=== PATIENT | female | born 1960 | race Caucasian/White ===

== ENCOUNTER 2020-07-05 14:34 | Inpatient (IN) | payer MEDICARE, OTHER ==
[~2020-07-05] VITALS: Ht 154.9 cm; Wt 68.9 kg
[2020-07-05] MEDS ORDERED: MAGNESIUM HYDROXIDE 30 ML LIQUID UDC PO PRN (15:15)
[2020-07-05] MEDS ORDERED: MAG HYDROX/AL HYDROX/SIMETH 30 ML LIQUID UDC PO PRN (15:15)
[2020-07-05] MEDS ORDERED: RAME8TAB24 PO (15:24)
[2020-07-05] MEDS ORDERED: LEVO75TA7 PO (15:24)
[2020-07-05] MEDS ORDERED: RISP2TAB85 PO (15:24)
[2020-07-05] MEDS ORDERED: LORA-258 PO (15:24)
[2020-07-05] MEDS ORDERED: RISP3TAB61 PO (15:24)
[2020-07-05] MEDS ORDERED: ERGO2500 (15:24)
[2020-07-05] MEDS ORDERED: DOCU100C36 PO (15:24)
[2020-07-05] MEDS ORDERED: MONT10TA97 PO (15:24)
[2020-07-05] MEDS ORDERED: BLOOD SUGAR DIAGNOSTIC 1 EACH STRIP VI ONE (15:40)
--- NOTE | 2020-07-05 16:00 | NUR ---
Pt was admitted from [facility] via ambulance on 515 due to DTS and GD. According to the hold, patient was unmanageable behavior at her place of residence. Pt was not compliant with medicaitons, disruptive, mumbling, yelling and episodes of drinking urine and putting feces in her ears. Upon face to face evaluation, Pt is uncooperative, resists care and unable to answer questions. Pt is moaning and repeating "I want to see my sister", "I want milkshake." Pt was transferred to her bed, skin check was done, bed alarm is on.
[2020-07-05] MEDS ORDERED: OLANZAPINE 10 MG VIAL IM ONE (16:15)
[2020-07-05] MEDS ORDERED: LORAZEPAM 2 MG/1 ML VIAL IM ONE (16:43)
[2020-07-05] MEDS: NYSTATIN CREAM 30 GM TUBE TOP SCH (22:12)
[2020-07-06] MEDS: LORAZEPAM 0.5 MG TABLET PO PRN (00:22)
--- NOTE | 2020-07-06 00:23 | NUR ---
patient yelling and banging on bed rails. ativan 0.5 mg po given.
[2020-07-06] MEDS: ZOLPIDEM 5 MG TABLET PO PRN (01:09)
--- NOTE | 2020-07-06 01:14 | NUR ---
patient is calm now but still awake unable to sleep. assisted to feed pudding. resting in bed.
--- NOTE | 2020-07-06 01:16 | NUR ---
patient unable to sleep. ambien 5 mg po given for sleep.
--- NOTE | 2020-07-06 02:18 | NUR ---
patient is sleeping at this time. prn for sleep effective.
--- NOTE | 2020-07-06 05:46 | NUR ---
GPS: Remain uncooperative most of the night. assisted with adl's. good jayden care provided. patient occ disrobing her self. slept only3.45 hrs through the night after sleeping meds given. bed alarm on for safety.continue plan of care.
[2020-07-06] MEDS: LEVOTHYROXINE SODIUM 75 MCG TABLET PO SCH (06:04)
[2020-07-06 07:30] VITALS: BP 117/63
[2020-07-06] MEDS: NYSTATIN CREAM 30 GM TUBE TOP SCH ×2 (08:30→21:36)
[2020-07-06] MEDS: MONTELUKAST SODIUM 10 MG TABLET PO SCH (08:30)
[2020-07-06] MEDS: DOCUSATE SODIUM 100 MG CAPSULE PO SCH (08:30)
[2020-07-06] MEDS ORDERED: OLANZAPINE 10 MG VIAL IM ONE (09:45)
[2020-07-06] MEDS ORDERED: LORAZEPAM 2 MG/1 ML VIAL IM ONE (09:45)
--- NOTE | 2020-07-06 09:51 | NUR ---
GPS: Nursing Notes: Chemical Restraint: Patient continue to be banging on the table, overly disruptive by shouting, screaming, baing on the table constantly, unable to be redirected, childlike behavior, resistant with nursing care, medicated with Zyprexa 10mg IM and Ativan 1mg IM STAT per Dr. Rosa covering for Dr. Bullock, continue to monitor for safety, continue with treatment plan.
--- NOTE | 2020-07-06 10:17 | NUR ---
GPS: Nursing Notes: Severe Agitation: Patient continue to be overly disruptive by banging on the side rail, banging on the table, verbal abusive, "fuck you...", shouting, screaming constantly, unable to follow directions, resistant with nursing care, impaired judgment, trying to climb over the side rail without any regard to her safety, throwing her food on the floor and screaming, Dr. Shelley navarrete, continue to monitor for safety, continue with treatment plan. Addendum: 07/06/20 at 1025 by TAYLER ZULUAGA LVN This charting is for 09:47.
--- NOTE | 2020-07-06 10:19 | NUR ---
GPS: Nursing Notes: Reassessment of Chemical Restraint: Patient became less disruptive, less shouting, patient stopped banging on the table, but continue to shout with less intensity, unable to follow directions, resistant with nursing care, medication IM's were helpful, R=18, continue to monitor for safety, continue with treatment plan.
[2020-07-06 16:50] VITALS: BP 101/48
[2020-07-06] MEDS: DIVALPROEX 250 MG TABLET.DR PO SCH (16:55)
[2020-07-06] MEDS: OLANZAPINE 2.5 MG TABLET PO SCH (16:55)
[2020-07-06 20:00] VITALS: BP 100/69
[2020-07-07] MEDS: ACETAMINOPHEN 325 MG TABLET PO PRN ×2 (03:08→11:50)
[2020-07-07] MEDS: LORAZEPAM 0.5 MG TABLET PO PRN ×3 (03:08→19:23)
[2020-07-07] MEDS: OLANZAPINE 2.5 MG TABLET PO PRN ×2 (05:09→11:50)
[2020-07-07] MEDS: LEVOTHYROXINE SODIUM 75 MCG TABLET PO SCH (07:00)
[2020-07-07 07:30] VITALS: BP 123/69
[2020-07-07] MEDS: DOCUSATE SODIUM 100 MG CAPSULE PO SCH (08:17)
[2020-07-07] MEDS: MONTELUKAST SODIUM 10 MG TABLET PO SCH (08:17)
[2020-07-07] MEDS: OLANZAPINE 2.5 MG TABLET PO SCH ×3 (08:17→20:16)
[2020-07-07] MEDS: DIVALPROEX 250 MG TABLET.DR PO SCH ×2 (08:18→12:02)
[2020-07-07] MEDS: NYSTATIN CREAM 30 GM TUBE TOP SCH ×2 (08:18→20:16)
[2020-07-07 10:58] LABS: BASOPHILS % (AUTO) 0.4 % (0.0-2.0); EOSINOPHILS % (AUTO) 1.7 % (0.0-7.0); HEMATOCRIT 36.1 % (31.2-41.9); HEMOGLOBIN 12.1 g/dL (10.9-14.3); LYMPHOCYTES # (AUTO) 0.6 K/uL (20.0-40.0); LYMPHOCYTES % (AUTO) 21.1 % (20.5-51.5); MEAN CORPUSCULAR HEMOGLOBIN 29.9 uug (24.7-32.8); MEAN CORPUSCULAR HGB CONC 33 g/dL (32.3-35.6); MEAN CORPUSCULAR VOLUME 89.6 fL (75.5-95.3); MONOCYTES # (AUTO) 0.3 K/uL (2.0-10.0); MONOCYTES % (AUTO) 11.9 % (0.0-11.0); NEUTROPHILS # (AUTO) 1.8 K/uL (1.8-8.9); NEUTROPHILS % (AUTO) 64.9 % (38.5-71.5); PLATELET COUNT (AUTO) 69 K/uL (179-408); RED BLOOD CELL COUNT(AUTO) 4.03 MIL/uL (3.63-4.92); WHITE BLOOD COUNT (AUTO) 2.7 K/uL (3.8-11.8)
[2020-07-07 11:12] LABS: BILIRUBIN,TOTAL 0.3 mg/dL (0.2-1.0); CREATININE 1.2 mg/dL (0.6-1.3); MAGNESIUM 2.3 mg/dL (1.8-2.4); POTASSIUM 4.3 mmol/L (3.5-5.1); TOTAL PROTEIN, SERUM 6.3 g/dL (6.4-8.2)
[2020-07-07 12:33] LABS: PHOSPHOROUS 4.2 mg/dL (2.5-4.9)
[2020-07-07 16:00] VITALS: BP 101/61
[2020-07-07 20:00] VITALS: BP 94/50
[2020-07-07] MEDS ORDERED: OLANZAPINE 10 MG VIAL IM ONE (21:55)
--- NOTE | 2020-07-07 23:20 | NUR ---
Chemical Restraint Note: Pt is disoriented, confused, disruptive, defiant, and resistant to staff direction. Pt was yelling, screaming, crying, and refusing prn medication. Pt threw her juice and pudding at staff and began banging the table and christopher with her fists. Redirection and reorientation were ineffective. Pt was uncooperative and refused to stop hitting the furniture, and demonstrated no regard for her safety or the safety of others. Pt attempted to strike staff when approached. Dr Bullock notified of Pt's behavior, Zyprexa 10mg IM ordered and administered with 2 staff present. IM administered to (L) deltoid, hands on Pt's arms for IM administration only, Pt did not physically resist. Medication effective, Pt calmed and is observed sleeping, breathing even and unlabored. VS stable at this time. Will continue to monitor.
[2020-07-08] MEDS: LEVOTHYROXINE SODIUM 75 MCG TABLET PO SCH (06:31)
[2020-07-08 07:30] VITALS: BP 115/67
[2020-07-08] MEDS: NYSTATIN CREAM 30 GM TUBE TOP SCH ×2 (08:19→21:09)
[2020-07-08] MEDS ORDERED: LORAZEPAM 0.5 MG TABLET PO PRN (08:30)
[2020-07-08] MEDS ORDERED: OLANZAPINE 2.5 MG TABLET PO SCH (08:34)
[2020-07-08] MEDS: OLANZAPINE 5 MG TABLET PO SCH ×4 (08:37→21:07)
--- NOTE | 2020-07-08 08:57 | NUR ---
Firearms Report: Chain Mender completed and submitted a [employer] firearms report for 5150 grave disability certification. A copy of report has been placed in patient chart.
[2020-07-08] MEDS: DOCUSATE SODIUM 100 MG CAPSULE PO SCH ×2 (09:00→10:09)
[2020-07-08] MEDS ORDERED: MONTELUKAST SODIUM 10 MG TABLET PO SCH (09:00)
[2020-07-08] MEDS: MONTELUKAST SODIUM 10 MG TABLET PO SCH (09:31)
[2020-07-08] MEDS: LORAZEPAM 1 MG TABLET PO PRN ×2 (10:14→16:15)
--- NOTE | 2020-07-08 10:53 | NUR ---
Initial Discharge Plan: Patient currently resides at a [facility] [address] [place] [address]; ([phone]). Patient's caregiver Opal ([phone]) is involved in patient's care. She stated patient is welcomed back to the [facility] if she is mobile. This SW will work with the MD and treatment team to help coordinate proper discharge plan.
--- NOTE | 2020-07-08 10:53 | NUR ---
Caregiver Contact: This SW contacted pt's caregiver to discuss treatment and discharge plan. Patient's caregiver Opal ([phone]) is involved in patient's care. She stated patient is welcomed back to the Assisted if she is mobile.
--- NOTE | 2020-07-08 15:49 | NUR ---
Dielectric Tester: Patient has a assistant case manager ([phone]) through [facility]. Per assistant case manager, Duran ([phone]) stated pt was off Depakote 2 years ago and it had caused weight loss and did not start on any other psychotropic medications. Per Duran, he stated she was on lithium and it was not affective it was causing behavioral issues.
[2020-07-08 15:54] VITALS: BP 95/55
[2020-07-08 20:38] VITALS: BP 100/52
[2020-07-09] MEDS: ZOLPIDEM 5 MG TABLET PO PRN (01:08)
[2020-07-09] MEDS: LORAZEPAM 1 MG TABLET PO PRN ×2 (03:57→11:36)
--- NOTE | 2020-07-09 04:02 | NUR ---
GPS: Pt.is awake,anxious and frequently calling-out for food. Also been trying to get up unassisted. Assisted to the toilet few times during the night. Snacks were given earlier already. Ativan 1mg PO given for anxiety. Re-directed and re-assured prn. Fall precautions observed.
[2020-07-09 04:33] LABS: *BILIRUBIN,URIN NEGATIVE (NEGATIVE); *BLOOD, URINE NEGATIVE (NEGATIVE); *CLARITY,URINE CLEAR (CLEAR); *COLOR,URINE YELLOW (YELLOW); *KETONES,URINE NEGATIVE (NEGATIVE); *UROBILINOGEN,URINE 0.2 E.U./dl (NORMAL); LEUKOCYTE ESTERASE ,URINE NEGATIVE (NEGATIVE); NITRITE, URINE NEGATIVE (NEGATIVE); UGLUCOSE NEGATIVE (NEGATIVE)
[2020-07-09 04:54] LABS: BACTERIA,URINE NONE SEEN /HPF (NONE SEEN); MUCUS,URINE FEW /LPF (0-FEW); RBC,URINE 0-3 /HPF (0-3); SQUAMOUS EPITHELIAL CELL,UR FEW /HPF (NONE SEEN)
[2020-07-09] MEDS: LEVOTHYROXINE SODIUM 75 MCG TABLET PO SCH (06:36)
[2020-07-09 07:30] VITALS: BP 105/64
[2020-07-09] MEDS: DOCUSATE SODIUM 100 MG CAPSULE PO SCH (08:21)
[2020-07-09] MEDS: OLANZAPINE 5 MG TABLET PO SCH ×3 (08:21→21:50)
[2020-07-09] MEDS: NYSTATIN CREAM 30 GM TUBE TOP SCH ×2 (08:22→21:52)
[2020-07-09] MEDS: ACETAMINOPHEN 325 MG TABLET PO PRN (08:22)
[2020-07-09] MEDS: OLANZAPINE 2.5 MG TABLET PO PRN (11:36)
[2020-07-09 16:00] VITALS: BP 102/54
[2020-07-09] MEDS: MONTELUKAST SODIUM 10 MG TABLET PO SCH (17:02)
[2020-07-09 20:14] VITALS: BP 117/44
[2020-07-10] MEDS: ZOLPIDEM 5 MG TABLET PO PRN ×2 (00:12→22:14)
[2020-07-10] MEDS: LEVOTHYROXINE SODIUM 75 MCG TABLET PO SCH (06:40)
[2020-07-10 07:30] VITALS: BP 128/68
[2020-07-10 08:41] LABS: BASOPHILS % (AUTO) 0.4 % (0.0-2.0); EOSINOPHILS # (AUTO) 0.1 K/uL (0.0-0.7); EOSINOPHILS % (AUTO) 3.4 % (0.0-7.0); HEMATOCRIT 35.9 % (31.2-41.9); LYMPHOCYTES # (AUTO) 0.9 K/uL (20.0-40.0); LYMPHOCYTES % (AUTO) 24.9 % (20.5-51.5); MEAN CORPUSCULAR HEMOGLOBIN 30.1 uug (24.7-32.8); MEAN CORPUSCULAR HGB CONC 33 g/dL (32.3-35.6); MEAN CORPUSCULAR VOLUME 90.3 fL (75.5-95.3); MONOCYTES # (AUTO) 0.4 K/uL (2.0-10.0); MONOCYTES % (AUTO) 11.5 % (0.0-11.0); NEUTROPHILS # (AUTO) 2.1 K/uL (1.8-8.9); NEUTROPHILS % (AUTO) 59.8 % (38.5-71.5); PLATELET COUNT (AUTO) 55 K/uL (179-408); RED BLOOD CELL COUNT(AUTO) 3.98 MIL/uL (3.63-4.92); WHITE BLOOD COUNT (AUTO) 3.5 K/uL (3.8-11.8)
[2020-07-10 08:46] LABS: BILIRUBIN,TOTAL 0.4 mg/dL (0.2-1.0); MAGNESIUM 2.4 mg/dL (1.8-2.4); PHOSPHOROUS 2.9 mg/dL (2.5-4.9); POTASSIUM 5.1 mmol/L (3.5-5.1); TOTAL PROTEIN, SERUM 6.4 g/dL (6.4-8.2)
[2020-07-10 09:13] LABS: BILIRUBIN,DIRECT 0.1 mg/dL (0.0-0.2)
[2020-07-10] MEDS: DOCUSATE SODIUM 100 MG CAPSULE PO SCH (10:11)
[2020-07-10] MEDS: OLANZAPINE 5 MG TABLET PO SCH ×3 (10:11→20:31)
[2020-07-10] MEDS: NYSTATIN CREAM 30 GM TUBE TOP SCH ×2 (10:13→20:32)
[2020-07-10] MEDS: busPIRone 5 MG TABLET PO SCH ×3 (10:15→18:25)
--- NOTE | 2020-07-10 13:20 | NUR ---
Probable Cause Hearing: Probable cause hearing was today and it was upheld for GD and danger to self.
[2020-07-10 16:00] VITALS: BP 101/51
[2020-07-10 17:43] LABS: EOSINOPHILS % (MANUAL) 5 % (0-8); LYMPHOCYTES % (MANUAL) 25 % (20-40); MONOCYTES % (MANUAL) 10 % (2-10); NEUTROPHILS % (MANUAL) 60 % (42-75)
[2020-07-10] MEDS: MONTELUKAST SODIUM 10 MG TABLET PO SCH (18:25)
[2020-07-10 20:15] VITALS: BP 112/57
[2020-07-10] MEDS: ACETAMINOPHEN 325 MG TABLET PO PRN (21:08)
--- NOTE | 2020-07-10 21:08 | NUR ---
Patient c/o headache. tylenol 650 mg po given.
--- NOTE | 2020-07-10 22:08 | NUR ---
patient stated feeling heri. Tylenol effective for headache.
[2020-07-11] MEDS: LORAZEPAM 1 MG TABLET PO PRN ×3 (01:46→23:57)
--- NOTE | 2020-07-11 01:51 | NUR ---
patient is very agitated. screaming loud. banging on side rails. ativan 1 mg po given.
--- NOTE | 2020-07-11 02:52 | NUR ---
patient is calm now. resting in bed. ativan for agitation effective.
--- NOTE | 2020-07-11 05:33 | NUR ---
GPS: Patient remain anxious and frequently calling-out for food and water. occ trying to get up unassisted. Assisted to the toilet and back to bed.unsteady gait. Re-directed and re-assured prn. Fall precautions observed. continue plan of care.
--- NOTE | 2020-07-11 05:52 | NUR ---
slept 5.15 hrs through the night.
[2020-07-11] MEDS: LEVOTHYROXINE SODIUM 75 MCG TABLET PO SCH (06:02)
[2020-07-11 07:30] VITALS: BP 108/58
[2020-07-11] MEDS: DOCUSATE SODIUM 100 MG CAPSULE PO SCH (08:36)
[2020-07-11] MEDS: busPIRone 5 MG TABLET PO SCH ×3 (08:37→16:52)
[2020-07-11] MEDS: OLANZAPINE 5 MG TABLET PO SCH ×3 (08:37→20:54)
[2020-07-11] MEDS: NYSTATIN CREAM 30 GM TUBE TOP SCH ×2 (08:38→21:00)
--- NOTE | 2020-07-11 11:20 | NUR ---
Gps/Enamel Pulverizer- Crying wilber gore at times, redirected, stayed up in her joshua-chair, attends her group therapy, listens ,no participations . Adequate fluid intake.
[2020-07-11 15:54] VITALS: BP 106/55
--- NOTE | 2020-07-11 16:15 | NUR ---
Gps/Sausage Machine Operator- Lower ext. weakness, unable to stand too long during toileting and hygiene. Tends to buckle.Safety reviewed . Bladder incontinence noted , diaper on.Kept up on her joshua-chair, patient tries to get oob bed alarm on.
[2020-07-11 17:06] LABS: A/G RATIO 1.1 (0.7-1.7); ALPHA-1-GLOBULIN 0.2 g/dL (0.0-0.4); ALPHA-2-GLOBULIN 0.6 g/dL (0.4-1.0); GAMMA GLOBULIN 0.9 g/dL (0.4-1.8); GLOBULIN, TOTAL 2.8 g/dL (2.2-3.9); M-SPIKE 0.4 g/dL (Not Observed)
[2020-07-11] MEDS: MONTELUKAST SODIUM 10 MG TABLET PO SCH (17:13)
[2020-07-11 20:10] VITALS: BP 99/51
[2020-07-12] MEDS: LEVOTHYROXINE SODIUM 75 MCG TABLET PO SCH (06:36)
[2020-07-12 07:30] VITALS: BP 111/62
[2020-07-12] MEDS: busPIRone 5 MG TABLET PO SCH ×3 (08:02→17:17)
[2020-07-12] MEDS: DOCUSATE SODIUM 100 MG CAPSULE PO SCH (08:02)
[2020-07-12] MEDS: OLANZAPINE 5 MG TABLET PO SCH ×3 (08:02→20:20)
[2020-07-12] MEDS: NYSTATIN CREAM 30 GM TUBE TOP SCH ×2 (08:03→21:23)
[2020-07-12 16:19] VITALS: BP 114/67
[2020-07-12] MEDS: MONTELUKAST SODIUM 10 MG TABLET PO SCH (17:17)
[2020-07-12] MEDS: BENZTROPINE MESYLATE 1 MG TABLET PO SCH (17:17)
[2020-07-12 20:00] VITALS: BP 116/64
[2020-07-13] MEDS: ZOLPIDEM 5 MG TABLET PO PRN ×2 (00:36→20:44)
[2020-07-13] MEDS: ACETAMINOPHEN 325 MG TABLET PO PRN (00:36)
--- NOTE | 2020-07-13 05:53 | NUR ---
PATIENT ASLEEP BUT EASILY AROUSABLE, PATIENT COOPERATIVE WITH CARE AND MEDICATIONS, PATIENT HAS EPISODE OF YELLING AND CRYING, AND REQUESTING PAIN MEDICATIONS, PATIENT WAS GIVEN TYLENOL AND SLEEPING MEDICATIONS FOR SLEEP AND COMFORT. PATIENT SLEEPT FOR 7:15, KEPT CLEAN AND DRY.
[2020-07-13] MEDS: LEVOTHYROXINE SODIUM 75 MCG TABLET PO SCH (06:03)
[2020-07-13 07:30] VITALS: BP 105/58
[2020-07-13] MEDS: busPIRone 5 MG TABLET PO SCH ×3 (08:15→16:03)
[2020-07-13] MEDS: OLANZAPINE 5 MG TABLET PO SCH ×3 (08:15→20:02)
[2020-07-13] MEDS: BENZTROPINE MESYLATE 1 MG TABLET PO SCH ×2 (08:15→16:03)
[2020-07-13] MEDS: DOCUSATE SODIUM 100 MG CAPSULE PO SCH (08:15)
[2020-07-13] MEDS: NYSTATIN CREAM 30 GM TUBE TOP SCH ×2 (08:16→20:02)
[2020-07-13 12:39] LABS: CREATININE 1.1 mg/dL (0.6-1.3); POTASSIUM 4.1 mmol/L (3.5-5.1)
[2020-07-13 12:47] LABS: BASOPHILS % (AUTO) 0.5 % (0.0-2.0); EOSINOPHILS # (AUTO) 0.1 K/uL (0.0-0.7); HEMATOCRIT 36.7 % (31.2-41.9); HEMOGLOBIN 12.1 g/dL (10.9-14.3); LYMPHOCYTES # (AUTO) 0.7 K/uL (20.0-40.0); LYMPHOCYTES % (AUTO) 22.8 % (20.5-51.5); MEAN CORPUSCULAR HGB CONC 33 g/dL (32.3-35.6); MONOCYTES # (AUTO) 0.3 K/uL (2.0-10.0); NEUTROPHILS % (AUTO) 62.7 % (38.5-71.5); PLATELET COUNT (AUTO) 85 K/uL (179-408); RED BLOOD CELL COUNT(AUTO) 4.03 MIL/uL (3.63-4.92); WHITE BLOOD COUNT (AUTO) 3.2 K/uL (3.8-11.8)
[2020-07-13 16:00] VITALS: BP 109/56
[2020-07-13] MEDS: MONTELUKAST SODIUM 10 MG TABLET PO SCH (17:12)
[2020-07-13 20:00] VITALS: BP 124/59
[2020-07-14] MEDS: LEVOTHYROXINE SODIUM 75 MCG TABLET PO SCH (06:00)
[2020-07-14 07:30] VITALS: BP 102/52
[2020-07-14] MEDS: BENZTROPINE MESYLATE 1 MG TABLET PO SCH ×2 (08:31→16:28)
[2020-07-14] MEDS: busPIRone 5 MG TABLET PO SCH ×3 (08:31→16:28)
[2020-07-14] MEDS: OLANZAPINE 5 MG TABLET PO SCH ×3 (08:31→21:03)
[2020-07-14] MEDS: DOCUSATE SODIUM 100 MG CAPSULE PO SCH (08:31)
[2020-07-14] MEDS: NYSTATIN CREAM 30 GM TUBE TOP SCH ×2 (08:32→21:04)
[2020-07-14] MEDS: OLANZAPINE 2.5 MG TABLET PO PRN (12:16)
[2020-07-14 15:12] VITALS: BP 114/47
[2020-07-14] MEDS: MONTELUKAST SODIUM 10 MG TABLET PO SCH (17:22)
[2020-07-14 18:44] LABS: *BILIRUBIN,URIN NEGATIVE (NEGATIVE); *BLOOD, URINE 2+ (NEGATIVE); *CLARITY,URINE SLIGHTLY CLOUDY (CLEAR); *COLOR,URINE YELLOW (YELLOW); *KETONES,URINE NEGATIVE (NEGATIVE); *UROBILINOGEN,URINE 0.2 E.U./dl (NORMAL); LEUKOCYTE ESTERASE ,URINE 2+ (NEGATIVE); NITRITE, URINE NEGATIVE (NEGATIVE); PH,URINE 5.5 (5.0-8.0); UGLUCOSE NEGATIVE (NEGATIVE)
[2020-07-14 23:54] LABS: BACTERIA,URINE FEW /HPF (NONE SEEN); SQUAMOUS EPITHELIAL CELL,UR FEW /HPF (NONE SEEN); URINE AMORPHOUS URATE FEW /HPF
[2020-07-15] MEDS: LEVOTHYROXINE SODIUM 75 MCG TABLET PO SCH (06:35)
--- NOTE | 2020-07-15 06:40 | NUR ---
Patient slept well during shift, awake once or twice for bathroom break. Some episode of crying or wanting attention without cause. Easily redirect-able and monitor throughout night.
[2020-07-15 07:30] VITALS: BP 103/60
[2020-07-15] MEDS: NYSTATIN CREAM 30 GM TUBE TOP SCH ×2 (08:08→20:16)
[2020-07-15] MEDS: DOCUSATE SODIUM 100 MG CAPSULE PO SCH (08:08)
[2020-07-15] MEDS: OLANZAPINE 5 MG TABLET PO SCH ×3 (08:08→20:15)
[2020-07-15] MEDS: BENZTROPINE MESYLATE 1 MG TABLET PO SCH ×2 (08:08→16:33)
[2020-07-15] MEDS: busPIRone 5 MG TABLET PO SCH ×3 (08:08→16:33)
[2020-07-15] MEDS: OLANZAPINE 2.5 MG TABLET PO PRN (12:14)
[2020-07-15 15:46] VITALS: BP 109/52
[2020-07-15] MEDS: CEphaleXIN 500 MG CAPSULE PO SCH (16:33)
[2020-07-15] MEDS: MONTELUKAST SODIUM 10 MG TABLET PO SCH (18:11)
[2020-07-15] MEDS: ACETAMINOPHEN 325 MG TABLET PO PRN (19:46)
[2020-07-15 19:52] VITALS: BP 107/55
[2020-07-16] MEDS: ZOLPIDEM 5 MG TABLET PO PRN (00:46)
[2020-07-16] MEDS: OLANZAPINE 2.5 MG TABLET PO PRN (04:40)
--- NOTE | 2020-07-16 04:45 | NUR ---
GPS: Nursing Notes: Thought Disorder: Patient is awake and responding to her name, asking for milk and crying about it, temper tantrum behavior, milk given with Zyprexa PRN PO, redirected and setting limits, but poor concentration, disorganized, disoriented, redirected and reoriented constantly during shift, unable to formulate a viable plan for self care, poor impulse control, episodes of childlike behavior, continue with treatment plan.
[2020-07-16] MEDS: LEVOTHYROXINE SODIUM 75 MCG TABLET PO SCH (06:06)
[2020-07-16 07:30] VITALS: BP 102/45
[2020-07-16] MEDS: DOCUSATE SODIUM 100 MG CAPSULE PO SCH (09:12)
[2020-07-16] MEDS: OLANZAPINE 5 MG TABLET PO SCH ×3 (09:12→20:38)
[2020-07-16] MEDS: busPIRone 5 MG TABLET PO SCH ×3 (09:12→16:40)
[2020-07-16] MEDS: BENZTROPINE MESYLATE 1 MG TABLET PO SCH ×2 (09:13→16:41)
[2020-07-16] MEDS: CEphaleXIN 500 MG CAPSULE PO SCH ×2 (09:13→16:41)
[2020-07-16] MEDS: NYSTATIN CREAM 30 GM TUBE TOP SCH ×2 (09:15→21:22)
--- NOTE | 2020-07-16 15:10 | NUR ---
Skilled Nursing Contact: SW contacted pt's senior living and spoke to Opal ([phone]) who stated that she will not accept the pt back until she can walk around without assist because she is an ambulatory facility and it has to do with licensing. She stated that the SW should talk to the pts protective services case worker, Germaine Flores ([phone]).
--- NOTE | 2020-07-16 15:35 | NUR ---
Content Production Specialist Contact: RAMÓN called pts shoe parts caser, Germaine Flores ([phone]), with [facility]. RAMÓN informed her about the conversation with the pts alf and she stated that the pt will need to be discharged to a higher level of care. RAMÓN stated that she will refer the pt to a snf and the shoe parts caser stated that she will speak with her cabin cleaning supervisor in terms of placement as well.
[2020-07-16 16:06] VITALS: BP 138/71
[2020-07-16] MEDS: MONTELUKAST SODIUM 10 MG TABLET PO SCH (17:05)
[2020-07-16 20:43] VITALS: BP 99/50
--- NOTE | 2020-07-17 05:03 | NUR ---
Patient in bed asleep but arousable. Patient has episode of agitation, yelling and claiming she cannot breath. Patient was check for oxygen saturation 95% on room air, reorient patient that she is derek, gave a glass of water to drink. Patient was offered to go to the bathroom, and to check her diaper, but patient refused, patient pants and diaper are dry. Provide snack early of shift. cont to monitor.
[2020-07-17] MEDS: LEVOTHYROXINE SODIUM 75 MCG TABLET PO SCH (06:07)
--- NOTE | 2020-07-17 06:44 | NUR ---
Patient slept for 4:45 minutes, awake early, wants to watch TV, get up in reclining chair.
[2020-07-17 07:30] VITALS: BP 106/54
[2020-07-17] MEDS: BENZTROPINE MESYLATE 1 MG TABLET PO SCH ×2 (10:03→17:34)
[2020-07-17] MEDS: OLANZAPINE 5 MG TABLET PO SCH ×3 (10:03→20:25)
[2020-07-17] MEDS: busPIRone 5 MG TABLET PO SCH ×3 (10:03→17:34)
[2020-07-17] MEDS: CEphaleXIN 500 MG CAPSULE PO SCH ×2 (10:03→17:33)
[2020-07-17] MEDS: DOCUSATE SODIUM 100 MG CAPSULE PO SCH (10:03)
[2020-07-17] MEDS: NYSTATIN CREAM 30 GM TUBE TOP SCH ×2 (10:04→20:48)
--- NOTE | 2020-07-17 13:54 | NUR ---
SNF Referral: SW faxed a referral to the following two facilities: [facility] with attn to Coy and [facility]: [phone] [facility] with attn to Supriya to the fax number: [phone]
[2020-07-17 16:00] VITALS: BP 103/45
[2020-07-17] MEDS: MONTELUKAST SODIUM 10 MG TABLET PO SCH (17:36)
[2020-07-17 20:00] VITALS: BP 103/54
[2020-07-17] MEDS: ZOLPIDEM 5 MG TABLET PO PRN (22:14)
--- NOTE | 2020-07-17 22:38 | NUR ---
PATIENT RECEIVED IN ACTIVITIES ROOM WATCHING T.V. PATIENT IS COMPLAINT WITH MEDICATION/CARE/DIET. PATIENT HAS POOR IMPULSE CONTROL, YELLING AT TIMES. PATIENT IS ABLE TO AMBULATE WITH ASSISTANCE. SAFE ENVIRONMENT PROVIDED, FREQUENT ROUNDING, AND CLUTTER FREE ENVIRONMENT. BED IN LOWEST POSITION, BED LOCKED, AND BED ALARM ON WHILE IN BED.
[2020-07-18] MEDS: LEVOTHYROXINE SODIUM 75 MCG TABLET PO SCH (06:12)
[2020-07-18 07:30] VITALS: BP 110/66
[2020-07-18 07:47] LABS: BASOPHILS % (AUTO) 0.8 % (0.0-2.0); EOSINOPHILS # (AUTO) 0.1 K/uL (0.0-0.7); EOSINOPHILS % (AUTO) 2.5 % (0.0-7.0); HEMATOCRIT 32.3 % (31.2-41.9); HEMOGLOBIN 10.9 g/dL (10.9-14.3); LYMPHOCYTES # (AUTO) 0.9 K/uL (20.0-40.0); LYMPHOCYTES % (AUTO) 24.8 % (20.5-51.5); MEAN CORPUSCULAR HEMOGLOBIN 30.8 uug (24.7-32.8); MEAN CORPUSCULAR HGB CONC 34 g/dL (32.3-35.6); MEAN CORPUSCULAR VOLUME 91.5 fL (75.5-95.3); MONOCYTES # (AUTO) 0.4 K/uL (2.0-10.0); MONOCYTES % (AUTO) 9.6 % (0.0-11.0); NEUTROPHILS # (AUTO) 2.3 K/uL (1.8-8.9); NEUTROPHILS % (AUTO) 62.3 % (38.5-71.5); PLATELET COUNT (AUTO) 136 K/uL (179-408); RED BLOOD CELL COUNT(AUTO) 3.53 MIL/uL (3.63-4.92); WHITE BLOOD COUNT (AUTO) 3.7 K/uL (3.8-11.8)
[2020-07-18 07:54] LABS: CREATININE 1.1 mg/dL (0.6-1.3); POTASSIUM 4.4 mmol/L (3.5-5.1)
[2020-07-18] MEDS: DOCUSATE SODIUM 100 MG CAPSULE PO SCH (08:54)
[2020-07-18] MEDS: OLANZAPINE 5 MG TABLET PO SCH ×3 (08:54→20:48)
[2020-07-18] MEDS: busPIRone 5 MG TABLET PO SCH ×3 (08:55→16:44)
[2020-07-18] MEDS: BENZTROPINE MESYLATE 1 MG TABLET PO SCH ×2 (08:55→16:44)
[2020-07-18] MEDS: CEphaleXIN 500 MG CAPSULE PO SCH ×2 (08:55→16:44)
[2020-07-18] MEDS: NYSTATIN CREAM 30 GM TUBE TOP SCH ×2 (08:56→20:48)
--- NOTE | 2020-07-18 11:22 | NUR ---
SNF Contact: Yury ([phone]) from [facility] contacted the SW and stated that the pt was accepted to their facility. SW stated that she will inform the MD and that the pt will be discharged the following day.
--- NOTE | 2020-07-18 14:35 | NUR ---
Marketing Database Analyst Contact: SW called pts embedded case manager, Germaine Sandra ([phone]), with [facility], and informed that the pt was accepted to a shelter facility called [facility] and that the pt would be discharged there the following day if there are no objections. railway station manager stated that she could not find any other facility and is willing to have the pt transferred to [facility].
--- NOTE | 2020-07-18 14:39 | NUR ---
SNF Contact: RAMÓN contacted Fredobibi ([phone]) from [facility] and informed her that the pt should be assigned to Dr. Rosa.
[2020-07-18 16:00] VITALS: BP 101/53
[2020-07-18] MEDS: MONTELUKAST SODIUM 10 MG TABLET PO SCH (17:10)
[2020-07-18 20:00] VITALS: BP 132/82
[2020-07-19] MEDS: ZOLPIDEM 5 MG TABLET PO PRN (01:02)
[2020-07-19] MEDS: LEVOTHYROXINE SODIUM 75 MCG TABLET PO SCH (06:08)
[2020-07-19 07:30] VITALS: BP 105/50
--- NOTE | 2020-07-19 07:30 | NUR ---
Received patient awake on bed, patient AOx 1, compliant with medication, patient has Discharge planning to [facility], patient aware of the plan, patient assisted with ADl, orders made and carried out
--- NOTE | 2020-07-19 08:25 | NUR ---
Discharge Note: Pt will be discharged to [facility] ([facility]) located at [address] [place] [address]; ([phone]). Pt will be transported via [facility] at 11AM. Pts nurse case manager, Germaine Flores ([phone]), was made aware that the pt is not returning to the [facility] at this time. Upon discharge, the pts mood appears to be euthymic with a congruent affect. Pt denies visual/auditory hallucinations and denied suicidal/homicidal ideation. Pt appears to be alert and oriented x1 (self). Pt appeared to be ambulatory with the assistance of a walker, well-groomed and appropriately dressed. Pt will be under the care of her psychiatrist, Dr. Rosa located at [address] [address]; , located at and her psychosocial rehabilitation counselor, Dr. Dove, located at [address] [place] [address]; . The Choice of Vendor and the multidisciplinary exit care form was done, printed, signed, and given to the patient.
[2020-07-19] MEDS: DOCUSATE SODIUM 100 MG CAPSULE PO SCH (08:50)
[2020-07-19] MEDS: busPIRone 5 MG TABLET PO SCH (08:50)
[2020-07-19] MEDS: OLANZAPINE 5 MG TABLET PO SCH (08:50)
[2020-07-19] MEDS: CEphaleXIN 500 MG CAPSULE PO SCH (08:50)
[2020-07-19] MEDS: BENZTROPINE MESYLATE 1 MG TABLET PO SCH (08:50)
[2020-07-19] MEDS: NYSTATIN CREAM 30 GM TUBE TOP SCH (08:51)
[2020-07-19] MEDS: LORAZEPAM 1 MG TABLET PO PRN (10:12)
--- NOTE | 2020-07-19 11:14 | NUR ---
Called and gave report to [facility], patient was picked up by 2 EMT personell with [facility], patient was last tested for covid 07/18/20 and was negative, patient resist thedischarge hwever agress after xplaining about the benefits of DC, patient belongings and [paper works was co signed by staff due to patient unable to sign due to mental condition, patient denies Si and Hi, and will be seen by Dr. villegas in [facility],
== END 2020-07-19 11:00 | DRG 885 ==
LOC: GPS 14:34
PROVIDERS: ADMIT Psychiatry & Neurology Psychosomatic Medicine; ATTEND Internal Medicine
DX: F29 Unspecified psychosis not due to a substance or known physiological condition (principal); N17.0 Acute kidney failure with tubular necrosis; B95.2 Enterococcus as the cause of diseases classified elsewhere; J96.91 Respiratory failure, unspecified with hypoxia; E87.0 Hyperosmolality and hypernatremia; D61.818 Other pancytopenia; D68.69 Other thrombophilia; F23 Brief psychotic disorder; N39.0 Urinary tract infection, site not specified; E03.9 Hypothyroidism, unspecified; E66.9 Obesity, unspecified; E86.0 Dehydration; F39 Unspecified mood [affective] disorder; J45.909 Unspecified asthma, uncomplicated; K80.20 Calculus of gallbladder without cholecystitis without obstruction; Z68.28 Body mass index [BMI] 28.0-28.9, adult; F25.9 Schizoaffective disorder, unspecified; R74.01 Elevation of levels of liver transaminase levels; D72.819 Decreased white blood cell count, unspecified; E86.9 Volume depletion, unspecified; Z20.822 Contact with and (suspected) exposure to COVID-19
CPT/HCPCS: 36415; 70030-TC; 70450; 76700; 83735; 83970; 84100; 84155; 84165; 84443; 85025; 87086; J2060; J2358; J3490